=== PATIENT | male | born 1960 | race Caucasian/White ===

== ENCOUNTER 2021-04-26 21:57 | Inpatient (IN) | payer OTHER ==
[~2021-04-26] VITALS: Ht 180.3 cm; Wt 127.0 kg
[2021-04-26] MEDS ORDERED: ACETAMINOPHEN 325 MG TAB PO ONE (22:30)
[2021-04-26 22:48] LABS: HEMATOCRIT 41.4 % (38.2-49.6); HEMOGLOBIN 13.9 g/dL (14.0-18.0); LYMPHOCYTES # (AUTO) 0.6 (1.0-3.2); LYMPHOCYTES % 13.4 % (18.0-39.1); MEAN CORPUSCULAR HEMOGLOBIN 29.4 pg (28-32); MEAN CORPUSCULAR HGB CONC 33.6 g/dL (31-35); MEAN CORPUSCULAR VOLUME 87.7 fL (81-99); MONOCYTES # (AUTO) 0.2 (0.2-0.8); MONOCYTES % 5.4 % (4.4-11.3); NEUTROPHILS # (AUTO) 3.4 (2.1-6.9); PLATELET COUNT 202 x10e3/uL (140-360); RED BLOOD COUNT 4.72 x10e6/uL (4.3-5.7)
[2021-04-26 23:07] LABS: ALBUMIN 3.3 g/dL (3.5-5.0); ALBUMIN/GLOBULIN RATIO 0.7 (0.8-2.0); ANION GAP 20.4 mmol/L (8-16); CALCIUM 9.1 mg/dL (8.4-10.2); CREATININE, SERUM 1.39 mg/dL (0.72-1.25); POTASSIUM 4.4 mmol/L (3.5-5.1)
[2021-04-26 23:13] LABS: CREATINE KINASE MB 1.1 ng/mL (0-5.0)
[2021-04-27] VITALS (7 sets, daily range): BP systolic 137–161; BP diastolic 87–92
[2021-04-27] MEDS ORDERED: SODIUM CHLORIDE FLUSH 10 ML SYR INJ PRN (00:15)
[2021-04-27] MEDS ORDERED: ENOXAPARIN INJ 80 MG/0.8 ML SYR SC SCH (00:15)
[2021-04-27] MEDS ORDERED: ENOXAPARIN SOD INJ 40 MG/0.4 ML SYR SC SCH (00:26)
[2021-04-27] MEDS: DEXAMETHASONE SOD PHOS 10 MG/1 ML VIAL IV SCH (00:56)
[2021-04-27] MEDS: CEFTRIAXONE 2 GM in SODIUM CHLORIDE 0.9% 100 ML IV SCH (02:15)
[2021-04-27] MEDS ORDERED: REMDESIVIR 200MG/NS 100ML 200 MG IV SCH (09:00)
[2021-04-27] MEDS ORDERED: ACETAMINOPHEN 325 MG TAB PO PRN (09:30)
[2021-04-27] MEDS ORDERED: SODIUM CHLORIDE 0.9% 1000ML 1,000 ML IV ONE (09:30)
[2021-04-27] MEDS: ZINC SULFATE 220 MG CAP PO SCH (09:56)
[2021-04-27] MEDS ORDERED: CLONIDINE HCL 0.1 MG TAB PO PRN (11:30)
[2021-04-27 12:08] LABS: HEMATOCRIT 42.2 % (38.2-49.6); HEMOGLOBIN 13.9 g/dL (14.0-18.0); LYMPHOCYTES # (AUTO) 0.5 (1.0-3.2); LYMPHOCYTES % 17.7 % (18.0-39.1); MEAN CORPUSCULAR HEMOGLOBIN 29.5 pg (28-32); MEAN CORPUSCULAR HGB CONC 32.9 g/dL (31-35); MEAN CORPUSCULAR VOLUME 89.6 fL (81-99); MONOCYTES # (AUTO) 0.2 (0.2-0.8); MONOCYTES % 8.3 % (4.4-11.3); NEUTROPHILS % 73.6 % (38.7-80.0); PLATELET COUNT 190 x10e3/uL (140-360); RED BLOOD COUNT 4.71 x10e6/uL (4.3-5.7)
[2021-04-27 13:04] LABS: ALBUMIN/GLOBULIN RATIO 0.6 (0.8-2.0); ANION GAP 18.7 mmol/L (8-16); CALCIUM 8.9 mg/dL (8.4-10.2); CREATININE, SERUM 1.24 mg/dL (0.72-1.25); POTASSIUM 4.7 mmol/L (3.5-5.1)
[2021-04-27] MEDS: ASCORBIC ACID 500 MG TAB PO SCH ×2 (13:07→16:57)
[2021-04-27] MEDS: METOPROLOL TARTRATE 50 MG TAB PO SCH (16:57)
[2021-04-27] MEDS ORDERED: CITALOPRAM HBR20 MG PO (17:42)
[2021-04-27] MEDS ORDERED: LASIX20 MG PO (17:42)
[2021-04-27] MEDS ORDERED: ASPIRIN81 MG PO (17:42)
[2021-04-27] MEDS ORDERED: PRAVASTATIN SOD20 MG PO (17:42)
[2021-04-27] MEDS: ENOXAPARIN SOD INJ 40 MG/0.4 ML SYR SC SCH (21:16)
[2021-04-28] VITALS (7 sets, daily range): BP systolic 104–150; BP diastolic 60–86
[2021-04-28] MEDS: CEFTRIAXONE 2 GM in SODIUM CHLORIDE 0.9% 100 ML IV SCH ×2
[2021-04-28] MEDS ORDERED: SODIUM CHLORIDE 0.9% 250ML 250 ML ONE (00:28)
[2021-04-28] MEDS: DEXAMETHASONE SOD PHOS 10 MG/1 ML VIAL IV SCH ×2 (00:47→23:02)
[2021-04-28] MEDS: ASCORBIC ACID 500 MG TAB PO SCH ×2 (08:30→17:00)
[2021-04-28] MEDS: ZINC SULFATE 220 MG CAP PO SCH (08:30)
[2021-04-28] MEDS: METOPROLOL TARTRATE 50 MG TAB PO SCH ×2 (08:30→18:34)
[2021-04-28] MEDS: ENOXAPARIN SOD INJ 40 MG/0.4 ML SYR SC SCH ×2 (08:30→21:57)
[2021-04-28] MEDS: REMDESIVIR 100MG/NS 100ML 100 MG IV SCH (08:46)
[2021-04-28] MEDS ORDERED: ASPIRIN 325 MG TAB PO SCH (09:00)
[2021-04-28 09:58] LABS: HEMATOCRIT 42.1 % (38.2-49.6); HEMOGLOBIN 14.5 g/dL (14.0-18.0); LYMPHOCYTES # (AUTO) 0.5 (1.0-3.2); LYMPHOCYTES % 7.2 % (18.0-39.1); MEAN CORPUSCULAR HEMOGLOBIN 29.9 pg (28-32); MEAN CORPUSCULAR HGB CONC 34.4 g/dL (31-35); MEAN CORPUSCULAR VOLUME 86.8 fL (81-99); MONOCYTES # (AUTO) 0.3 (0.2-0.8); MONOCYTES % 4.2 % (4.4-11.3); NEUTROPHILS # (AUTO) 6.4 (2.1-6.9); NEUTROPHILS % 88.3 % (38.7-80.0); PLATELET COUNT 234 x10e3/uL (140-360); RED BLOOD COUNT 4.85 x10e6/uL (4.3-5.7); RED CELL DISTRIBUTION WIDTH 12.9 % (11.7-14.4)
[2021-04-28 10:18] LABS: ALBUMIN/GLOBULIN RATIO 0.6 (0.8-2.0); ANION GAP 19.8 mmol/L (8-16); POTASSIUM 4.8 mmol/L (3.5-5.1)
[2021-04-28] MEDS: CEFTRIAXONE 1 GM in SODIUM CHLORIDE 0.9% 50ML 50 ML IV SCH (21:57)
[2021-04-29] VITALS (7 sets, daily range): BP systolic 104–146; BP diastolic 76–89
[2021-04-29 06:04] LABS: BASOPHILS % 0.1 % (0.0-1.0); HEMATOCRIT 39.5 % (38.2-49.6); HEMOGLOBIN 13.2 g/dL (14.0-18.0); LYMPHOCYTES # (AUTO) 0.5 (1.0-3.2); LYMPHOCYTES % 7.6 % (18.0-39.1); MEAN CORPUSCULAR HEMOGLOBIN 29.5 pg (28-32); MEAN CORPUSCULAR HGB CONC 33.4 g/dL (31-35); MEAN CORPUSCULAR VOLUME 88.4 fL (81-99); MONOCYTES # (AUTO) 0.3 (0.2-0.8); MONOCYTES % 4.2 % (4.4-11.3); NEUTROPHILS # (AUTO) 6.2 (2.1-6.9); NEUTROPHILS % 87.5 % (38.7-80.0); PLATELET COUNT 257 x10e3/uL (140-360); RED BLOOD COUNT 4.47 x10e6/uL (4.3-5.7)
[2021-04-29 06:36] LABS: ALBUMIN 3.5 g/dL (3.5-5.0); ALBUMIN/GLOBULIN RATIO 0.9 (0.8-2.0); ANION GAP 17.5 mmol/L (8-16); CALCIUM 8.8 mg/dL (8.4-10.2); CREATININE, SERUM 1.02 mg/dL (0.72-1.25); POTASSIUM 4.5 mmol/L (3.5-5.1)
[2021-04-29] MEDS: ASPIRIN 81 MG CHEW TAB PO SCH (10:29)
[2021-04-29] MEDS: ASCORBIC ACID 500 MG TAB PO SCH ×2 (10:30→17:05)
[2021-04-29] MEDS: ZINC SULFATE 220 MG CAP PO SCH (10:30)
[2021-04-29] MEDS: METOPROLOL TARTRATE 50 MG TAB PO SCH ×2 (10:30→17:06)
[2021-04-29] MEDS: ENOXAPARIN SOD INJ 40 MG/0.4 ML SYR SC SCH ×2 (10:30→20:37)
[2021-04-29] MEDS: REMDESIVIR 100MG/NS 100ML 100 MG IV SCH (11:36)
[2021-04-29] MEDS: CEFTRIAXONE 1 GM in SODIUM CHLORIDE 0.9% 50ML 50 ML IV SCH (20:37)
[2021-04-29] MEDS: DEXAMETHASONE SOD PHOS 10 MG/1 ML VIAL IV SCH (23:52)
[2021-04-30] VITALS: BP 122/72
[2021-04-30 04:00] VITALS: BP 107/58
[2021-04-30 07:30] VITALS: BP 146/80
[2021-04-30] MEDS: ZINC SULFATE 220 MG CAP PO SCH (08:59)
[2021-04-30] MEDS: ASPIRIN 81 MG CHEW TAB PO SCH (08:59)
[2021-04-30] MEDS: REMDESIVIR 100MG/NS 100ML 100 MG IV SCH (08:59)
[2021-04-30] MEDS: ENOXAPARIN SOD INJ 40 MG/0.4 ML SYR SC SCH (08:59)
[2021-04-30] MEDS: ASCORBIC ACID 500 MG TAB PO SCH (08:59)
[2021-04-30] MEDS ORDERED: METOPROLOL TARTRATE 50 MG TAB PO SCH (09:00)
[2021-04-30 09:43] VITALS: BP 146/80
[2021-04-30 11:00] VITALS: BP 165/94
[2021-04-30] MEDS ORDERED: DECADRON4 M1 PO (12:56)
[2021-04-30] MEDS ORDERED: METOPROLOL TART50 MG PO (12:56)
== END 2021-04-30 15:55 | disposition home or self-care (01) | DRG 177 ==
LOC: ER 22:16 → ERHOLD 04-27 05:45 → MED/SURG2 04-27 10:39 → IMCU 04-28 21:03
PROVIDERS: ADMIT Internal Medicine; ATTEND Internal Medicine
PROC: 3E0333Z Introduction of Anti-inflammatory into Peripheral Vein, Percutaneous Approach (ICD-10-PCS; principal; 2021-04-27)
PROC: XW033E5 Introduction of Remdesivir Anti-infective into Peripheral Vein, Percutaneous Approach, New Technology Group 5 (ICD-10-PCS; 2021-04-27)
DX: U07.1 COVID-19 (principal); J12.82 Pneumonia due to coronavirus disease 2019; J96.01 Acute respiratory failure with hypoxia; E87.1 Hypo-osmolality and hyponatremia; N17.9 Acute kidney failure, unspecified; B19.9 Unspecified viral hepatitis without hepatic coma; I10 Essential (primary) hypertension; E11.9 Type 2 diabetes mellitus without complications; I25.10 Atherosclerotic heart disease of native coronary artery without angina pectoris; E78.5 Hyperlipidemia, unspecified; Z91.018 Allergy to other foods; Z82.49 Family history of ischemic heart disease and other diseases of the circulatory system; Z91.010 Allergy to peanuts; E86.0 Dehydration; D72.819 Decreased white blood cell count, unspecified; E66.9 Obesity, unspecified; Z68.39 Body mass index [BMI] 39.0-39.9, adult
CPT/HCPCS: 36415; 71045; 80053; 82550; 82553; 84484; 85025; 86140; 93005; 99251; 99285; J0456; J0696; J1100; J1650; J7050; U0002